=== PATIENT | male | born 1945 | race Native Hawaiian/Other Pacific Islander ===

== ENCOUNTER 2017-07-21 16:09 | Outpatient (CLI) | payer OTHER | END 2017-07-21 17:10 | disposition home or self-care (01) | LOC: RAD 16:09 | DX: J44.9 Chronic obstructive pulmonary disease, unspecified (principal) ==

== ENCOUNTER 2017-10-02 05:39 | Emergency (ER) | payer OTHER ==
[~2017-10-02] VITALS: Ht 170.2 cm; Wt 43.1 kg
[2017-10-02 05:45] VITALS: TEMP 98.6
[2017-10-02] MEDS ORDERED: HYDR10TA47 PO (05:58)
[2017-10-02] MEDS ORDERED: ALPR0.5T24 PO (06:00)
[2017-10-02] MEDS ORDERED: BREO ELLIPTA 101 INH IN (06:00)
[2017-10-02] MEDS ORDERED: PRED5TAB3 PO (06:00)
[2017-10-02] MEDS ORDERED: ZANTAC300 MG PO (06:01)
[2017-10-02 06:43] LABS: PLATELET COUNT 371 K/uL (142-355); POTASSIUM 3.5 mmol/L (3.6-5.2)
[2017-10-02 08:30] VITALS: BP 100/58
== END 2017-10-02 08:30 | disposition home or self-care (01) ==
LOC: ED 05:39
DX: J18.9 Pneumonia, unspecified organism (principal); J47.9 Bronchiectasis, uncomplicated; J44.9 Chronic obstructive pulmonary disease, unspecified; S50.311A Abrasion of right elbow, initial encounter; W18.39XA Other fall on same level, initial encounter; Y92.89 Other specified places as the place of occurrence of the external cause
CPT/HCPCS: 36415; 80053; 81000; 85027; 96360; 96365; 96372; 99284; J0696; J1885

== ENCOUNTER 2018-10-14 13:12 | Inpatient (IN) | payer OTHER ==
[~2018-10-14] VITALS: Ht 170.2 cm; Wt 46.3 kg
[~2018-10-14 13:12] MED LIST: ALPR0.5T24 PO; BREO ELLIPTA 101 INH IN; HYDR10TA47 PO; PRED5TAB3 PO; ZANTAC300 MG PO
[2018-10-14 13:24] VITALS: BP 117/56; TEMP 97.9
[2018-10-14 14:06] LABS: PLATELET COUNT 384 K/uL (142-355)
[2018-10-14 14:15] LABS: POTASSIUM 4.1 mmol/L (3.6-5.2)
[2018-10-14 15:50] VITALS: BP 104/66
[2018-10-14 17:09] VITALS: BP 125/74; TEMP 99.4; Ht 170.2 cm; Wt 46.3 kg
[2018-10-14 20:09] VITALS: BP 112/60; TEMP 98.2
[2018-10-15] VITALS (10 sets, daily range): BP systolic 75–135; BP diastolic 50–77; TEMP 97.5–98.8
[2018-10-15 04:22] LABS: PLATELET COUNT 303 K/uL (142-355)
[2018-10-16 04:00] VITALS: BP 98/53; TEMP 98
[2018-10-16 08:00] VITALS: BP 108/61; TEMP 97.8
[2018-10-16 12:00] VITALS: BP 99/56; TEMP 97.8
[2018-10-16 16:00] VITALS: BP 94/54; TEMP 97.5
[2018-10-16 20:00] VITALS: BP 92/53; TEMP 97.7
[2018-10-17] VITALS: BP 100/61; TEMP 98.2
[2018-10-17 04:00] VITALS: BP 117/68; TEMP 98.2
[2018-10-17 04:59] LABS: POTASSIUM 3.2 mmol/L (3.6-5.2)
[2018-10-17 05:00] LABS: PLATELET COUNT 319 K/uL (142-355)
[2018-10-17 08:20] VITALS: BP 136/67; TEMP 97.8
[2018-10-17 12:05] VITALS: BP 131/69; TEMP 98
[2018-10-17 16:02] VITALS: BP 111/75; TEMP 98.1
[2018-10-17 20:00] VITALS: BP 118/69; TEMP 97.9
[2018-10-18] VITALS: BP 123/75; TEMP 97.8
[2018-10-18 04:00] VITALS: BP 157/79; TEMP 98.2
[2018-10-18 08:04] VITALS: BP 143/77; TEMP 97.6
[2018-10-18 12:06] VITALS: BP 147/58; TEMP 97.8
== END 2018-10-18 13:20 | disposition home or self-care (01) | DRG 192 ==
LOC: ED 13:12 → MED/SURG 15:08
PROVIDERS: Family Medicine; ADMIT Internal Medicine
PROC: 30233N1 Transfusion of Nonautologous Red Blood Cells into Peripheral Vein, Percutaneous Approach (ICD-10-PCS; principal; 2018-10-17)
PROC: 30233N1 Transfusion of Nonautologous Red Blood Cells into Peripheral Vein, Percutaneous Approach (ICD-10-PCS; 2018-10-18)
DX: J44.1 Chronic obstructive pulmonary disease with (acute) exacerbation (principal); Z86.11 Personal history of tuberculosis; N40.0 Benign prostatic hyperplasia without lower urinary tract symptoms; I12.9 Hypertensive chronic kidney disease with stage 1 through stage 4 chronic kidney disease, or unspecified chronic kidney disease; N18.3 Chronic kidney disease, stage 3 (moderate); D64.89 Other specified anemias; D72.828 Other elevated white blood cell count; J84.10 Pulmonary fibrosis, unspecified; R79.1 Abnormal coagulation profile; R79.89 Other specified abnormal findings of blood chemistry
CPT/HCPCS: 36415; 80048; 80053; 82550; 82553; 83880; 84484; 85014; 85018; 85027; 85379; 86850; 86900; 86901; 86922; 87040; 93005; 94640; 94664; 94760; 96361; 96365; 96375; 99284; J0456; J0696; J1650; J1940; J2920; J2930; P9016

== ENCOUNTER 2018-11-24 09:16 | Outpatient (CLI) | payer OTHER ==
[2018-11-24 10:25] LABS: PLATELET COUNT 420 K/uL (142-355)
[2018-11-24 10:27] LABS: POTASSIUM 4.3 mmol/L (3.6-5.2)
== END 2018-11-24 19:38 | disposition home or self-care (01) ==
LOC: LABW 09:16
PROVIDERS: Nurse Practitioner
DX: D64.9 Anemia, unspecified (principal)
CPT/HCPCS: 36415; 80053; 82728; 83540; 83550; 85027

== ENCOUNTER 2018-11-25 11:48 | Inpatient (IN) | payer OTHER ==
[~2018-11-25] VITALS: Ht 170.2 cm; Wt 47.7 kg
[2018-11-25 12:03] VITALS: BP 116/75; TEMP 98
[2018-11-25 12:58] LABS: PLATELET COUNT 365 K/uL (142-355)
[2018-11-25 13:08] LABS: POTASSIUM 3.9 mmol/L (3.6-5.2)
[2018-11-25 13:30] VITALS: BP 114/86
[2018-11-25 16:22] VITALS: BP 99/71; TEMP 97.5
[2018-11-25 16:32] VITALS: BP 99/71; TEMP 97.5; Ht 170.2 cm; Wt 47.7 kg
[2018-11-25 20:04] VITALS: BP 116/69; TEMP 98.3
[2018-11-25 23:43] VITALS: BP 97/58; TEMP 98.7
[2018-11-26 04:00] VITALS: BP 101/65; TEMP 98.5
[2018-11-26 05:43] LABS: PLATELET COUNT 337 K/uL (142-355)
[2018-11-26 08:00] VITALS: BP 107/65; TEMP 97.9
[2018-11-26 12:00] VITALS: BP 88/53; TEMP 98.1
[2018-11-26 16:00] VITALS: BP 98/55; TEMP 97.9
[2018-11-26 20:10] VITALS: BP 121/63; TEMP 97.7
[2018-11-27 00:19] VITALS: BP 121/52; TEMP 97.7
[2018-11-27 04:00] VITALS: BP 90/55; TEMP 98.1
[2018-11-27 05:40] LABS: PLATELET COUNT 313 K/uL (142-355)
[2018-11-27 08:00] VITALS: BP 143/64; TEMP 97.5
[2018-11-27 12:13] VITALS: BP 132/60; TEMP 97.7
[2018-11-27 16:00] VITALS: BP 144/51; TEMP 97.7
[2018-11-27 20:00] VITALS: BP 101/57; TEMP 97.8
[2018-11-28] VITALS: BP 105/62; TEMP 98.1
[2018-11-28 04:00] VITALS: BP 101/68; TEMP 98.8
[2018-11-28 08:00] VITALS: BP 146/55; TEMP 97.8
[2018-11-28 12:00] VITALS: BP 106/61; TEMP 97.6
[2018-11-28 16:00] VITALS: BP 110/71; TEMP 97.8
[2018-11-28 20:00] VITALS: BP 142/63; TEMP 98.4
[2018-11-29] VITALS: BP 101/61; TEMP 97.7
[2018-11-29 04:00] VITALS: BP 122/68; TEMP 97.7
[2018-11-29 05:52] LABS: PLATELET COUNT 316 K/uL (142-355)
[2018-11-29 06:14] LABS: POTASSIUM 4.1 mmol/L (3.6-5.2)
[2018-11-29 08:00] VITALS: BP 132/66; TEMP 97.8
== END 2018-11-29 12:55 | disposition home or self-care (01) | DRG 190 ==
LOC: ED 11:48 → MED/SURG 14:45
PROVIDERS: Internal Medicine; ADMIT Allergy & Immunology
DX: J44.1 Chronic obstructive pulmonary disease with (acute) exacerbation (principal); J18.8 Other pneumonia, unspecified organism; J44.0 Chronic obstructive pulmonary disease with (acute) lower respiratory infection; N40.0 Benign prostatic hyperplasia without lower urinary tract symptoms; Z86.11 Personal history of tuberculosis; K21.9 Gastro-esophageal reflux disease without esophagitis; I10 Essential (primary) hypertension; R63.4 Abnormal weight loss
CPT/HCPCS: 36415; 80048; 80053; 83605; 85027; 87040; 87116; 87206; 94640; 94664; 94760; 96365; 96366; 96367; 99284; J0696; J1956; J2920; J2930

== ENCOUNTER 2019-01-11 16:38 | Outpatient (CLI) | payer OTHER | END 2019-01-11 17:10 | disposition short-term general hospital (02) | LOC: AMB 16:38 | DX: R06.02 Shortness of breath (principal); R53.1 Weakness; R09.89 Other specified symptoms and signs involving the circulatory and respiratory systems | CPT/HCPCS: A0425; A0427 ==

== ENCOUNTER 2019-02-18 13:03 | Inpatient (IN) | payer OTHER ==
[2019-02-18] VITALS (7 sets, daily range): BP systolic 109–121; BP diastolic 47–85; TEMP 97.4–98.1; Ht 180.3 cm; Wt 42.8 kg
[~2019-02-18] VITALS: Ht 180.3 cm; Wt 42.8 kg
[2019-02-18 13:31] LABS: PLATELET COUNT 454 K/uL (142-355)
[2019-02-18 13:41] LABS: POTASSIUM 4.3 mmol/L (3.6-5.2)
[2019-02-18] MEDS ORDERED: PANTOPRAZOLE 40MG TA PO (19:26)
[2019-02-18] MEDS ORDERED: ASA LOW DOSE81 MG PO (19:28)
[2019-02-18] MEDS ORDERED: LIPITOR40 MG PO (19:28)
[2019-02-18] MEDS ORDERED: CLOP75TA2 PO (19:29)
[2019-02-18] MEDS ORDERED: PROAIR HFA108 MCG/AC INH (19:30)
[2019-02-18] MEDS ORDERED: PREDNISOLONE SO10 MG PO (19:30)
[2019-02-18] MEDS ORDERED: ALBUSOL INH (19:31)
[2019-02-18] MEDS ORDERED: TRELEGY ELLIPTA1 AER INH (19:32)
[2019-02-19] VITALS: BP 147/75; TEMP 98
[2019-02-19 04:00] VITALS: BP 134/98; TEMP 98.7
[2019-02-19 05:19] LABS: PLATELET COUNT 417 K/uL (142-355)
[2019-02-19 06:02] LABS: POTASSIUM 4.1 mmol/L (3.6-5.2)
[2019-02-19 08:00] VITALS: BP 129/56; TEMP 98.4
[2019-02-19 12:00] VITALS: BP 119/68; TEMP 97.9
[2019-02-19 16:00] VITALS: BP 119/57; TEMP 97.9
[2019-02-19 20:00] VITALS: BP 130/60; TEMP 97.5
[2019-02-20] VITALS: BP 148/73; TEMP 98.3
[2019-02-20 04:00] VITALS: BP 120/67; TEMP 98.6
[2019-02-20 05:34] LABS: PLATELET COUNT 415 K/uL (142-355)
[2019-02-20 08:00] VITALS: BP 130/77; TEMP 98.3
[2019-02-20 12:00] VITALS: BP 140/66; TEMP 97.1
[2019-02-20] MEDS ORDERED: LEVO250T2 PO (13:15)
[2019-02-20] MEDS ORDERED: PREDNISOLONE SO10 MG PO (13:15)
[2019-02-20] MEDS ORDERED: ALPR0.5T24 PO (13:15)
[2019-02-20] MEDS ORDERED: CASA100C53 PO (13:15)
[2019-02-20] MEDS ORDERED: IPRATROPIUM/ INH (13:15)
== END 2019-02-20 14:05 | disposition home or self-care (01) | DRG 192 ==
LOC: ED 13:03 → MED/SURG 14:30
PROVIDERS: Family Medicine
DX: J44.1 Chronic obstructive pulmonary disease with (acute) exacerbation (principal); I25.10 Atherosclerotic heart disease of native coronary artery without angina pectoris; D72.828 Other elevated white blood cell count; J44.0 Chronic obstructive pulmonary disease with (acute) lower respiratory infection; J20.9 Acute bronchitis, unspecified
CPT/HCPCS: 36415; 80053; 81000; 82550; 82805; 83605; 83880; 84484; 85027; 85379; 85610; 87040; 90658; 93005; 94640; 94664; 94760; 96361; 96365; 99284; J0132; J0696; J1650; J2405; J3370; J3490; Q9963

== ENCOUNTER 2019-03-26 13:31 | Outpatient (CLI) | payer OTHER ==
[~2019-03-26 13:31] MED LIST changes: +ALBUSOL INH; +ASA LOW DOSE81 MG PO; +CASA100C53 PO; +CLOP75TA2 PO; +IPRATROPIUM/ INH; +LEVO250T2 PO; +LIPITOR40 MG PO; +PANTOPRAZOLE 40MG TA PO; +PREDNISOLONE SO10 MG PO; +PROAIR HFA108 MCG/AC INH; +TRELEGY ELLIPTA1 AER INH
[2019-03-26 14:28] LABS: PLATELET COUNT 373 K/uL (142-355); POTASSIUM 4.3 mmol/L (3.6-5.2)
== END 2019-03-26 19:40 | disposition home or self-care (01) ==
LOC: LABW 13:31
PROVIDERS: Nurse Practitioner
DX: D72.828 Other elevated white blood cell count (principal); M54.5 Low back pain; R06.02 Shortness of breath
CPT/HCPCS: 36415; 80048; 83880; 85027; 85379